=== PATIENT | male | born 1955 | race Caucasian/White ===

== ENCOUNTER 2019-01-25 15:43 | Emergency (ER) | payer BC ==
[2019-01-25] MEDS ORDERED: MORPHINE SULFATE 10 MG/ML VIAL IVP ONE ×2 (17:07→17:51)
[2019-01-25] MEDS ORDERED: ONDANSETRON HCL IV 4 MG/2 ML VIAL IVP ONE (17:07)
--- NOTE | 2019-01-25 17:13 | Emergency Department Record ---
History of Present Illness - General Chief Complaint: Fall Injury Stated Complaint: FELL 3', HIT HEAD,RT HAND PAIN Time Seen by Provider: 01/25/19 17:02 Source: Patient Mode of Arrival: Ambulatory Limitations: No limitations - History of Present Illness Initial Comments: The patient is here after a fall. He was on a stool painting about 3 feet in the air and the stool slipped out from under him. He hit his face and R hand while falling and injured both. He did hit his forehead but had no LOC. Since the patient has had no DIAZ or any neck pain. He does have nose pain and a fat upper lip and did suffer a small cut over the bridge of his nose. The patient also does have a deformity to his R hand. He did just have carpal tunnel surgery 1 week ago. His Td is UTD. Complaint: Fall Onset/Timin -: Minutes(s) Fall From: From height (distance), Standing Fall Witnessed: No Place Fall Occurred: Home Loss of Consciousness: None Prolonged Down Time?: No Symptoms Prior to Fall: None Location: Face Severity scale (1-10): 8 Associated Symptoms: Denies - [place] Coma Scale Eye Response: (4) Open spontaneously Motor Response: (6) Obeys commands Verbal Response: (5) Oriented Yusuf Total: 15 - Related Data Previous Rx's Medication Instructions Recorded Cephalexin [Keflex] 500 mg PO QID #20 cap 01/25/19 Allergies Allergy/AdvReac Type Severity Reaction Status Date / Time No Known Allergies Allergy Unverified 06/17/18 13:20 Travel Screening - Travel/Exposure Within Last 30 Days Have you traveled within the last 30 days?: No - Travel/Exposure Within Last Year Have you traveled outside the [place] in the last year?: No - Travel Symptoms Symptom Screening: None Review of Systems Constitutional: Denies: Chills, Fever Eyes: Denies: Eye discharge ENT: Denies: Congestion Respiratory: Denies: Cough, Dyspnea Past Medical History - SOCIAL HISTORY Smoking Status: Never smoker Alcohol Use: Occasional Drug Use: None - RESPIRATORY Hx Respiratory Disorders: Yes Hx Pneumonia: Yes - CARDIOVASCULAR Hx Cardio Disorders: No - NEURO Hx Neuro Disorders: No - GI Hx GI Disorders: Yes Hx Hiatal Hernia: Yes - Hx Genitourinary Disorders: No - ENDOCRINE Hx Endocrine Disorders: No - MUSCULOSKELETAL Hx Musculoskeletal Disorders: Yes Hx Fibromyalgia: Yes - PSYCH Hx Psych Problems: No - HEMATOLOGY/ONCOLOGY Hx Hematology/Oncology Disorders: No Family Medical History Any Significant Family History?: No Physical Exam - General General Appearance: Alert, Oriented x3, Cooperative, No acute distress - Head Head exam: Atraumatic, Normocephalic, Normal inspection (There are no signs of any head trauma.) - Eye Eye exam: Normal appearance, PERRL, EOMI - ENT ENT exam: negative: Normal exam (There is swelling over the nasal bridge and the and the mid upper lip. There is no bony instability or maxilofacial signs of fracture. The alveolar ridge above the upper front teeth is nontender and stable.) Nasal Exam: Other (Neg septal hematoma.) Mouth exam: negative: Normal external inspection (There is a swollen and tender upper lip in the midline. There also is a swollen nasal bridge with a < 1 cm lac present. ) Teeth exam: Normal inspection - Neck Neck exam: Normal inspection, Full ROM. negative: Tenderness - Respiratory Respiratory exam: Normal lung sounds bilaterally. negative: Respiratory distress - Cardiovascular Cardiovascular Exam: Regular rate, Normal rhythm, Normal heart sounds - GI/Abdominal GI/Abdominal exam: Soft, Normal bowel sounds. negative: Tenderness - Extremities Extremities exam: Tenderness (There is R wrist tenderness and R distal 3rd and 4th finger pain with deformities.). negative: Normal inspection - Back Back exam: Reports: Normal inspection. Denies: Vertebral tenderness - Neurological Neurological exam: Alert, Normal gait, Oriented X3. negative: Abnormal gait, Motor sensory deficit - Psychiatric Psychiatric exam: negative: Anxious Course - Reevaluation(s) Reevaluation #1: Precedure note: the nasal bridge was anesth. with 0.5 cc;s Lido with epi. There was an 8mm V shaped lac over the dorsal bridge. It was cleansed with betadine and saline and 3 5.0 nylon sutures were placed with good result. Procedure note: Finger joint PIP dislocation reduction. The R 3rd and 4th fingers were anesth. each using a digital block technique with 3 cc's Lidocaine. The PIP joints were reduced with traction with successful reduction. The post-reduction xrays were completed and demonstrated successful reduction. 01/25/19 18:34 Reevaluation #2: I did discuss the case with the patient's hand surgeon Dr. Barkley. He will see the patient in the office in 2 days for recheck. 01/25/19 18:37 Medical Decision Making - Data Complexity MDM Data: X-Ray Ordered and/or Reviewed - Radiology Data Radiology results: Report reviewed (Nasal bones. Nondisplaced anterior fx. R hand: Disolocated 3rd and 4th PIP joints dorsally with comminuted nondisplaced intra-articular fx of distal radius. Post reduction R hand: successful reduction.) Disposition Disposition: Discharge Clinical Impression: Wrist fracture, right Qualifiers: Encounter type: initial encounter Fracture type: closed Qualified Code(s): S62.101A - Fracture of unspecified carpal bone, right wrist, initial encounter for closed fracture Disposition: Home, Self-Care Condition: (2) Stable Instructions: Nasal Fracture (ED), Wrist Fracture in Adults (ED) Additional Instructions: Please use ice to the facial areas and the R wrist and use your home pain medicines if needed. Please rest and return to the ER for any headache, fever, nausea, or vomiting. Have the nose sutures removed in 5-[address] Barkley in 2 days as planned for recheck. Please take the Keflex as directed. Prescriptions: Cephalexin [Keflex] 500 mg PO QID #20 cap Forms: Patient Portal Access Time of Disposition: 18:42 Quality - Quality Measures Quality Measures: N/A - Blood Pressure Screening View Details: Yes Does Patient Have Any of the Following: No Blood Pressure Classification: Pre-Hypertensive BP Reading Systolic Measurement: 137 Diastolic Measurement: 76 Screening for High Blood Pressure: < Pre-Hypertensive BP, F/U Documented > [ G8950] Pre-Hypertensive Follow-up Interventions: Referral to alternative/primary care provider.
--- NOTE | 2019-01-27 09:32 | RADIOLOGY REPORT ---
EXAM: RIGHT HAND HISTORY: RIGHT HAND PAIN AND DEFORMITY STATUS POST FALL. RECENT CARPAL TUNNEL SURGERY. TECHNIQUE: Three views of the right hand were obtained. Comparison: None. FINDINGS: There is dorsal dislocation of the third and fourth PIP joints. There is no visible associated fracture on these images. There is a nondisplaced mildly comminuted intraarticular fracture of the distal radius. A fracture extends across the base of the radial styloid. There is also a small longitudinal fracture along the ulnar aspect of the distal radius. There is no significant angulation. The remaining osseous structures appear intact. IMPRESSION: 1. DORSAL DISLOCATION OF THE THIRD AND FOURTH PIP JOINTS WITH NO VISIBLE ASSOCIATED FRACTURES. 2. NONDISPLACED MILDLY COMMINUTED INTRAARTICULAR FRACTURE OF THE DISTAL RADIUS. JOB NUMBER: [id number] [facility]
--- NOTE | 2019-01-27 09:35 | RADIOLOGY REPORT ---
EXAM: NASAL BONE SERIES HISTORY: NASAL PAIN AND LACERATION STATUS POST FALL. TECHNIQUE: Five views of the nasal bones were obtained. Comparison: None. FINDINGS: There is a mildly comminuted nondisplaced nasal bone fracture anteriorly. The remaining facial bones appear intact. There are no acute sinus air fluid levels. Mild mucosal thickening is present within the left maxillary sinus. IMPRESSION: MILDLY COMMINUTED NONDISPLACED NASAL BONE FRACTURE. [facility]: [id number] [facility]
--- NOTE | 2019-01-27 09:43 | RADIOLOGY REPORT ---
EXAM: RIGHT HAND HISTORY: POST REDUCTION VIEWS. FINGER DISLOCATIONS. TECHNIQUE: Two views of the right hand were obtained. Comparison: 01/25/19. FINDINGS: There has been successful reduction of the previously noted dislocations of the third and fourth PIP joints. There are no visible associated fractures. A nondisplaced mildly comminuted intraarticular fracture is again noted at the distal radius. IMPRESSION: 1. SUCCESSFUL REDUCTION OF THE THIRD AND FOURTH PIP JOINTS WITH NO VISIBLE ASSOCIATED FRACTURE. 2. NONDISPLACED MILDLY COMMINUTED INTRAARTICULAR FRACTURE OF THE DISTAL RADIUS. J[facility] NUMBER: [id number] [facility]
== END 2019-01-25 18:55 | disposition home or self-care (01) ==
LOC: ER 15:43
DX: S52.571A Other intraarticular fracture of lower end of right radius, initial encounter for closed fracture (principal); S01.21XA Laceration without foreign body of nose, initial encounter; S63.282A Dislocation of proximal interphalangeal joint of right middle finger, initial encounter; S63.284A Dislocation of proximal interphalangeal joint of right ring finger, initial encounter; S02.2XXA Fracture of nasal bones, initial encounter for closed fracture
CPT/HCPCS: 26770 ×2; 12011 ×2; 99284 ×2; 96376; 96374; 96375; 73120; 73130; 70160; J2405; J2270

== ENCOUNTER 2019-01-30 08:46 | Emergency (ER) | payer BC ==
--- NOTE | 2019-01-30 09:10 | Emergency Department Record ---
History of Present Illness - General Chief Complaint: Suture removal Stated Complaint: REMOVE STITCHES Time Seen by Provider: 01/30/19 09:01 Source: Patient Mode of arrival: Ambulatory Limitations: No limitations - History of Present Illness MD Complaint: Suture/staple removal Onset/Timin -: Days(s) Initial Visit For: Laceration Returns Today for: Staple/stitch removal Symptoms Since Prior Visit: No new symptoms, Improved Associated Symptoms: None - Related Data Previous Rx's Medication Instructions Recorded Cephalexin [Keflex] 500 mg PO QID #20 cap 01/25/19 Allergies Allergy/AdvReac Type Severity Reaction Status Date / Time No Known Allergies Allergy PT UNSURE Verified 01/30/19 08:49 OF REACTION Travel Screening - Travel/Exposure Within Last 30 Days Have you traveled within the last 30 days?: No - Travel/Exposure Within Last Year Have you traveled outside the [place] in the last year?: No - Additonal Travel Details Have you been exposed to anyone with a communicable illness?: No - Travel Symptoms Symptom Screening: None Review of Systems Reviewed: No additional complaints except as noted below Constitutional: Reports: As per HPI. Denies: Chills, Fever, Malaise, Night sweats, Weakness, Weight change Eyes: Reports: As per HPI. Denies: Eye discharge, Eye pain, Photophobia, Vision change ENT: Reports: As per HPI. Denies: Congestion, Dental pain, Ear pain, Epistaxis , Hearing loss, Throat pain Respiratory: Reports: As per HPI. Denies: Cough, Dyspnea, Hemoptysis, Stridor, Wheezes Cardiovascular: Reports: As per HPI. Denies: Arrhythmia, Chest pain, Dyspnea on exertion, Edema, Murmurs, Orthopnea, Palpitations, Paroxysmal nocturnal dyspnea, Rheumatic Fever, Syncope Endocrine: Reports: As per HPI. Denies: Fatigue, Heat or cold intolerance, Polydipsia, Polyuria Gastrointestinal: Reports: As per HPI. Denies: Abdominal pain, Constipation, Diarrhea, Hematemesis, Hematochezia, Melena, Nausea, Vomiting Genitourinary: Reports: As per HPI. Denies: Dysuria, Frequency, Hematuria, Incontinence, Retention, Testicular pain, Testicular mass, Urgency Musculoskeletal: Reports: As per HPI. Denies: Arthralgia, Back pain, Gout, Joint swelling, Myalgia, Neck pain Skin: Reports: As per HPI. Denies: Bruising, Change in color, Change in hair/ nails, Lesions, Pruritus, Rash Neurological: Reports: As per HPI. Denies: Abnormal gait, Confusion, Headache, Numbness, Paresthesias, Seizure, Tingling, Tremors, Vertigo, Weakness Psychiatric: Reports: As per HPI. Denies: Anxiety, Auditory hallucinations, Depression, Homicidal thoughts, Suicidal thoughts, Visual hallucinations Hematological/Lymphatic: Reports: As per HPI. Denies: Anemia, Blood Clots, Easy bleeding, Easy bruising, Swollen glands Past Medical History - SOCIAL HISTORY Smoking Status: Never smoker Alcohol Use: None Drug Use: None - RESPIRATORY Hx Respiratory Disorders: Yes Hx Pneumonia: Yes - CARDIOVASCULAR Hx Cardio Disorders: No - NEURO Hx Neuro Disorders: No - GI Hx GI Disorders: Yes Hx Hiatal Hernia: Yes - Hx Genitourinary Disorders: No - ENDOCRINE Hx Endocrine Disorders: No - MUSCULOSKELETAL Hx Musculoskeletal Disorders: Yes Hx Fibromyalgia: Yes - PSYCH Hx Psych Problems: No - HEMATOLOGY/ONCOLOGY Hx Hematology/Oncology Disorders: No Family Medical History Any Significant Family History?: No Physical Exam - General General Appearance: Alert, Oriented x3, Cooperative, No acute distress - Head Head exam: Normal inspection Head exam detail: Laceration (well healed) - Eye Eye exam: Normal appearance, PERRL, EOMI Pupils: Normal accommodation - ENT ENT exam: Normal exam, Mucous membranes moist, Normal external ear exam, Normal orophraynx Ear exam: Normal external inspection. negative: External canal tenderness Nasal Exam: Normal inspection. negative: Discharge, Sinus tenderness Mouth exam: Normal external inspection, Tongue normal Teeth exam: Normal inspection. negative: Dental caries Throat exam: Normal inspection. negative: Tonsillar erythema, Tonsillar exudate - Neck Neck exam: Normal inspection, Full ROM. negative: Tenderness - Respiratory Respiratory exam: negative: Respiratory distress - GI/Abdominal GI/Abdominal exam: Soft, Normal bowel sounds. negative: Tenderness - Rectal Rectal exam: Deferred - exam: Deferred - Extremities Extremities exam: Normal inspection, Full ROM, Normal capillary refill. negative: Tenderness - Back Back exam: Reports: Normal inspection, Full ROM. Denies: Muscle spasm, Rash noted, Tenderness - Neurological Neurological exam: Alert, CN II-XII intact, Normal gait, Oriented X3 - Psychiatric Psychiatric exam: Normal affect, Normal mood - Skin Skin exam: Dry, Intact, Normal color, Warm Course Vital Signs 01/30/19 01/30/19 08:51 09:00 Temperature 98 F 98 F Pulse Rate 61 Respiratory 18 18 Rate Blood Pressure 141/72 Pulse Ox 97 97 Disposition Forms: Patient Portal Access Quality - Quality Measures Quality Measures: N/A - Blood Pressure Screening Does Patient Have Any of the Following: No Blood Pressure Classification: Hypertensive Reading Systolic Measurement: 141 Diastolic Measurement: 72 Screening for High Blood Pressure: < First Hypertensive BP, F/U Documented > [ G8950] First Hypertensive Follow-up Interventions: Follow-up with rescreen GT 1 day and LT 4 weeks.
--- NOTE | 2019-01-30 09:52 | Emergency Department Record ---
History of Present Illness - General Chief Complaint: Suture removal Stated Complaint: REMOVE STITCHES Time Seen by Provider: 01/30/19 09:01 Source: Patient Mode of arrival: Ambulatory Limitations: No limitations - History of Present Illness Onset/Timin -: Days(s) Initial Visit For: Laceration Returns Today for: Staple/stitch removal Symptoms Since Prior Visit: No new symptoms, Improved Associated Symptoms: None - Related Data Previous Rx's Medication Instructions Recorded Cephalexin [Keflex] 500 mg PO QID #20 cap 01/25/19 Allergies Allergy/AdvReac Type Severity Reaction Status Date / Time No Known Allergies Allergy PT UNSURE Verified 01/30/19 08:49 OF REACTION Travel Screening - Travel/Exposure Within Last 30 Days Have you traveled within the last 30 days?: No - Travel/Exposure Within Last Year Have you traveled outside the [place] in the last year?: No - Additonal Travel Details Have you been exposed to anyone with a communicable illness?: No - Travel Symptoms Symptom Screening: None Review of Systems Constitutional: Reports: As per HPI. Denies: Chills, Fever, Malaise, Night sweats, Weakness, Weight change Eyes: Reports: As per HPI. Denies: Eye discharge, Eye pain, Photophobia, Vision change ENT: Reports: As per HPI. Denies: Congestion, Dental pain, Ear pain, Epistaxis , Hearing loss, Throat pain Respiratory: Reports: As per HPI. Denies: Cough, Dyspnea, Hemoptysis, Stridor, Wheezes Cardiovascular: Reports: As per HPI. Denies: Arrhythmia, Chest pain, Dyspnea on exertion, Edema, Murmurs, Orthopnea, Palpitations, Paroxysmal nocturnal dyspnea, Rheumatic Fever, Syncope Endocrine: Reports: As per HPI. Denies: Fatigue, Heat or cold intolerance, Polydipsia, Polyuria Gastrointestinal: Reports: As per HPI. Denies: Abdominal pain, Constipation, Diarrhea, Hematemesis, Hematochezia, Melena, Nausea, Vomiting Genitourinary: Reports: As per HPI. Denies: Dysuria, Frequency, Hematuria, Incontinence, Retention, Testicular pain, Testicular mass, Urgency Musculoskeletal: Reports: As per HPI. Denies: Arthralgia, Back pain, Gout, Joint swelling, Myalgia, Neck pain Skin: Reports: As per HPI. Denies: Bruising, Change in color, Change in hair/ nails, Lesions, Pruritus, Rash Neurological: Reports: As per HPI. Denies: Abnormal gait, Confusion, Headache, Numbness, Paresthesias, Seizure, Tingling, Tremors, Vertigo, Weakness Psychiatric: Reports: As per HPI. Denies: Anxiety, Auditory hallucinations, Depression, Homicidal thoughts, Suicidal thoughts, Visual hallucinations Hematological/Lymphatic: Reports: As per HPI. Denies: Anemia, Blood Clots, Easy bleeding, Easy bruising, Swollen glands Past Medical History - SOCIAL HISTORY Smoking Status: Never smoker Alcohol Use: None Drug Use: None - RESPIRATORY Hx Respiratory Disorders: Yes Hx Pneumonia: Yes - CARDIOVASCULAR Hx Cardio Disorders: No - NEURO Hx Neuro Disorders: No - GI Hx GI Disorders: Yes Hx Hiatal Hernia: Yes - Hx Genitourinary Disorders: No - ENDOCRINE Hx Endocrine Disorders: No - MUSCULOSKELETAL Hx Musculoskeletal Disorders: Yes Hx Fibromyalgia: Yes - PSYCH Hx Psych Problems: No - HEMATOLOGY/ONCOLOGY Hx Hematology/Oncology Disorders: No Family Medical History Any Significant Family History?: No Physical Exam - General Limitations: No limitations Course Vital Signs 01/30/19 01/30/19 08:51 09:00 Temperature 98 F 98 F Pulse Rate 61 Respiratory 18 18 Rate Blood Pressure 141/72 Pulse Ox 97 97 Disposition Disposition: Discharge Clinical Impression: Visit for suture removal Disposition: Home, Self-Care Condition: (1) Good Instructions: Stitches Removal (ED) Additional Instructions: apply antibiotic cream Forms: Patient Portal Access Quality - Quality Measures Quality Measures: N/A - Blood Pressure Screening Does Patient Have Any of the Following: No Blood Pressure Classification: Hypertensive Reading Systolic Measurement: 141 Diastolic Measurement: 72 Screening for High Blood Pressure: < First Hypertensive BP, F/U Documented > [ G8950] First Hypertensive Follow-up Interventions: Follow-up with rescreen GT 1 day and LT 4 weeks.
== END 2019-01-30 09:56 | disposition home or self-care (01) ==
LOC: ER 08:46
DX: Z48.02 Encounter for removal of sutures (principal)